=== PATIENT | male | born 2000 | race Hispanic/Latino ===

== ENCOUNTER 2020-10-04 00:16 | Emergency (ER) | payer OTHER, SELFPAY ==
[2020-10-04 00:17] VITALS: BP 128/75; PULSE 75; RESP 16; TEMP 36.1; O2SAT 100; BMI 24.3
--- NOTE | 2020-10-04 00:27 | ED.DCSUM_ITS ---
History of Present Illness Chief Complaint: Burn Informant: Patient Onset: Today Context: Sudden Onset Timing: Continuous Current Severity: Mild Maximum Severity: Mild Narrative: The patient is a 20-year-old male is otherwise healthy the presents to the emergency department with burn. Patient was working with an RF structural welder. He states that he accidentally burned the dorsum of his right thumb. He is right- hand dominant. He is unsure of his last tetanus. He does describe some mild pain. He is otherwise been in his normal state of health. He takes no daily medications. Prior similar symptoms: No Recent Illness/Hospitalization: No Past Medical History - Allergies and Home Meds Allergies/Adverse Reactions: Allergies No Known Allergies Allergy (Verified 10/04/20 00:19) Primary Care Physician: Care Physician,No Primary [Primary Care Provider] - Prior records reviewed: Yes Past Medical History: None Surgical History: noncontributory Smoking Status: Never smoker Review of Systems General: Denies: Chills, Fever, Sweats Eyes: Denies: Visual changes - bilaterally, Diplopia ENT: Denies: Rhinorrhea, Sore throat Cardiovascular: Denies: Chest pain, Palpitations Respiratory: Denies: Dyspnea, Cough, Dyspnea on exertion Gastrointestinal: Denies: Abdominal pain, Nausea, Vomiting, Diarrhea, Melena, Hematochezia Genitourinary: Denies: Dysuria, Hematuria, Frequency Musculoskeletal: Denies: Back pain, Extremity Pain Skin: Denies: Rash, Wounds Neurological: Denies: Headache, Weakness, Numbness Physical Exam Vital Signs/Narrative: Vital Signs Temp Pulse Resp BP Pulse Ox 10/04/20 00:17 97 F L 75 16 128/75 H 100 Inital Vital Signs reviewed: Yes General: Well nourished, Well developed, No Acute Distress Head: Normocephalic, Atraumatic Eyes: Perrl, EOMI ENT: Moist mucous membranes, No rhinorrhea Neck: Supple, Nontender Cardiovascular: Regular rate, Regular rhythm, No murmurs Respiratory: No distress, CTA bilaterally, Chest nontender Abdomen: Soft, Nontender, Nondistended, Normal bowel sounds Back: Nontender, Normal Inspection Extremities: No edema, Tenderness - Patient does have partial-thickness burn on the dorsum of the right thumb. He does travel down to about the area of the wrist. It is less than 1% total body surface area. There is no skin sloughing. It is not circumferential. There is no cervical hematoma. Skin: Normal color, No rash Neurological: Alert, Oriented x3, Cranial nerves II-XII grossly intact, Normal Strength, Normal Sensation Psychological: Normal affect, Normal Mood Diagnostic/Tx/Re-eval - Medical Decision Making Patient presents with welding burn to the thumb. His tetanus is updated. The wound was cleaned and dressed. This was a work-related injury. The patient is given a short course of analgesics and was counseled on local wound care. At this point, he will be discharged home. Impression 1. Partial-thickness burn right dorsum of thumb ED Disposition - Plan for ED Patient: Instructions: ED [facility] ... Prescriptions: Bacitracin 30 gm TP Q8 #30 oint...g. Prescription Printed Hydrocodone Bitart/Apap 5-325 [[place] 5MG-325MG] 1 tab PO Q6H PRN PRN 3 Days #10 tab PRN Reason: Pain Prescription Printed Referrals: [facility] [GROUP OF PHYSICIANS] -
[2020-10-04] MEDS: Diphth,Pertuss(Acell),Tet Vac 0.5 ML Vial IM (01:24)
[2020-10-04 01:35] VITALS: RESP 16
== END 2020-10-04 01:35 | disposition home or self-care (01) ==
LOC: ED 01:11
PROVIDERS: Emergency Provider Emergency Medicine
DX: T23.211A Burn of second degree of right thumb (nail), initial encounter (principal); T31.0 Burns involving less than 10% of body surface; X17.XXXA Contact with hot engines, machinery and tools, initial encounter; Y93.89 Activity, other specified; Y92.9 Unspecified place or not applicable; Y99.0 Civilian activity done for income or pay
CPT/HCPCS: 90471; 90715; 99282